=== PATIENT | male | born 1980 | race Caucasian/White ===

== ENCOUNTER 2017-09-19 07:59 | Day surgery (SDC) | payer BC ==
[~2017-09-19] VITALS: Ht 182.9 cm; Wt 94.3 kg
[~2017-09-19 07:59] MED LIST: B Complex #11 EACH PO; CRUTCH4 USE; HYDACE5 PO; IBUP800 PO; OXYACE5T PO; Omeprazole20 M1 PO
== END 2017-09-19 10:10 | disposition home or self-care (01) ==
LOC: ORSCSDS 07:59
PROVIDERS: Internal Medicine Gastroenterology
PROC: 0DB58ZX Excision of Esophagus, Via Natural or Artificial Opening Endoscopic, Diagnostic (ICD-10-PCS; principal; 2017-09-19 09:15)
DX: K22.70 Barrett's esophagus without dysplasia (principal); K44.9 Diaphragmatic hernia without obstruction or gangrene
CPT/HCPCS: 88305

== ENCOUNTER 2025-04-10 20:13 | Emergency (ER) | payer OTHER, BC ==
[~2025-04-10] VITALS: Ht 172.7 cm; Wt 104.3 kg
[~2025-04-10 20:13] MED LIST changes: +TIZA4 PO
[2025-04-10] MEDS ORDERED: OxyCODONE 10/Acetamin 325 TABLET PO ONE (20:50)
[2025-04-10] MEDS ORDERED: IBUP600 PO (21:53)
[2025-04-10] MEDS ORDERED: CYCL10 PO (21:53)
[2025-04-10] MEDS ORDERED: ACET500 PO (21:53)
[2025-04-10 22:11] VITALS: BP 126/91
== END 2025-04-10 22:21 | disposition home or self-care (01) ==
LOC: ER 20:13
DX: M54.2 Cervicalgia (principal); R07.89 Other chest pain; Z87.891 Personal history of nicotine dependence; Z88.0 Allergy status to penicillin; Z88.2 Allergy status to sulfonamides; Z79.899 Other long term (current) drug therapy
CPT/HCPCS: 70450; 71045; 72125; 99284-25; A9270; L0160